=== PATIENT | male | born 1965 | race Caucasian/White ===

== ENCOUNTER 2017-02-07 14:57 | Emergency (ER) | payer SELFPAY ==
[~2017-02-07] VITALS: Ht 177.8 cm; Wt 85.0 kg
[~2017-02-07 14:57] MED LIST: Z.0.NO CURRENT MEDS
[2017-02-07 14:59] VITALS: BP 128/84; PULSE 88; RESP 13; TEMP 98.9; O2SAT 100
--- NOTE | 2017-02-07 15:18 | PD ---
Physical Exam Time Seen by Provider: 15:17 Narrative 52-year-old male with complaint of right inner thigh "boil" times two week. Denies fever, vomiting. Patient seen in triage. Vital signs reviewed. Patient awaiting bed placement. Data Data Last Documented VS Vital Signs Date Time Temp Pulse Resp B/P (MAP) Pulse Ox O2 Delivery O2 Flow Rate FiO2 02/07/17 14:59 98.9 88 13 128/84 (99) 100 MDM Supervised Visit with HODAN: Chelsi Sue Feb 07, 2017 15:18
--- NOTE | 2017-02-07 15:48 | PD ---
HPI Chief Complaint: Lump, Cyst, Hernia Time Seen by Provider: 15:35 Travel History International Travel<30 days: No Contact w/Intl Traveler<30days: No Traveled to known affect area: No History of Present Illness HPI Patient comes in complaining of a boil to his right inner thigh that began a week or 2 ago. Patient states had something similar happen approximately month ago that went away with using [id number] salve. Patient denies anything making it better this time. Patient states believes that sweating while working is making the boil worse. Patient complaining of pressure burning pain over the site of the boil. Denies any radiation of the pain. Denies any drainage or fevers. PFSH Past Medical History Medical History: Denies Significant Hx Diminished Hearing: No Social History Alcohol Use: Yes (5 TIMES WEEKLY) Tobacco Use: Yes (2 PPD FOR 20 YEARS) Substance Use: No Allergies-Medications (Allergen,Severity, Reaction): Coded Allergies: No Known Allergies (Verified Allergy, Mild, 03/09/07) Reported Meds & Prescriptions Reported Meds & Active Scripts Active Keflex (Cephalexin) 500 Mg Cap 500 Mg PO Q8H Bactrim DS (Sulfamethoxazole-Trimethoprim) 800-160 Mg Tab 1 Tab PO BID Reported No Current Meds (Miscellaneous Medication) Misc Review of Systems Except as stated in HPI: all other systems reviewed are Neg Physical Exam Narrative GENERAL: Well-developed, well nourished, in no acute distress, and non-ill appearing. SKIN: Small fluctuant abscess noted right inner thigh proximally approximately 2 cm in greatest diameter. It is tender to palpation. There is no crepitus or drainage. HEAD: Atraumatic. Normocephalic. EYES: Pupils equal and round. EOMI. No scleral icterus. No injection or drainage. ENT: No nasal bleeding or discharge. Mucous membranes pink and moist. NECK: Trachea midline. Supple. No nuclear rigidity. RESPIRATORY: No accessory muscle use. No respiratory distress. MUSCULOSKELETAL: No obvious deformities. No clubbing. No cyanosis. No edema. Full range of motion. NEUROLOGICAL: Awake and alert. No obvious cranial nerve deficits. Motor grossly within normal limits. Normal speech. PSYCHIATRIC: Appropriate mood and affect; insight and judgment normal. Data Data Last Documented VS Vital Signs Date Time Temp Pulse Resp B/P (MAP) Pulse Ox O2 Delivery O2 Flow Rate FiO2 9/22/17 15:53 02/07/17 14:59 98.9 88 13 100 Orders Orders Wound Culture And Gram Stain (02/07/17 15:35) MDM Medical Decision Making Medical Screen Exam Complete: Yes Emergency Medical Condition: Yes Differential Diagnosis Abscess, cellulitis, gangrene, folliculitis, other Narrative Course The patient has no evidence of significant cellulitis. There is no evidence of necrotizing fasciitis/ [place] at this time. The patient will be discharged on antibiotics. The patient was given signs and symptoms warnings for worsening infection, such as spreading of redness, increasing pain, and/or swelling, associated heat, or fever or feels worse, and instructed to return immediately if these signs or symptoms worsen. The patient is to return in 2 days for recheck. Sooner if worsens or as needed. The patient agrees with plan. Patient in no obvious distress upon re-evaluation. Patient was asked if they wanted to speak to my attending, which the patient did not wish to do at this time. Any questions/concerns in reference to patient diagnosis/condition discussed and clarified prior to patient's discharge. Reinforced sheer importance of close follow up with patient's primary physician or primary care clinic or to return here in 2 days for recheck. Instructed patient to return to ED immediately, if symptoms return/worsen. Patient showed understanding of above instructions. Further instructions and recommendations were detailed in discharge paperwork. Patient ambulated without difficulty out of ED at discharge. Procedures Procedure Narrative INCISION AND DRAINAGE OF ABSCESS: Verbal consent was obtained. The area was prepped. A number 16-gauge needle was used to make a small puncture wound over the area of the abscess. The abscess was drained. Sterile dressing applied by nurse. Patient tolerated procedure well. Patient advised to return here in 2 days to have wound rechecked. Patient verbalized understanding. Diagnosis Primary Impression: Abscess Patient Instructions: Abscess (GEN), Abscess Incision and Drainage (DC), General Instructions Additional Instructions: Follow-up here in 2 days for recheck. Take all medication as prescribed. Apply warm compresses to affected area multiple times throughout the day to promote drainage. Keep area dry and clean as possible using soap and water. Return to the emergency department if symptoms get worse. Med/Other Pt SpecificInfo: Prescription(s) given Scripts Cephalexin (Keflex) 500 Mg Cap 500 MG PO Q8H for Infection, #30 CAP 0 Refills Prov: Lucinda Burton MD 02/07/17 Sulfamethoxazole-Trimethoprim (Bactrim DS) 800-160 Mg Tab 1 TAB PO BID for Infection, #20 TAB 0 Refills Prov: Lucinda Burton MD 02/07/17 Disposition: 01 DISCHARGE HOME Condition: Stable Hang Meade Feb 07, 2017 15:48
[2017-02-07] MEDS ORDERED: BACT800T5 PO (15:49)
[2017-02-07] MEDS ORDERED: CEPH-460 PO (15:49)
== END 2017-02-07 16:11 | disposition home or self-care (01) ==
LOC: NEPK 14:57
DX: L02.415 Cutaneous abscess of right lower limb (principal); B95.7 Other staphylococcus as the cause of diseases classified elsewhere; F17.200 Nicotine dependence, unspecified, uncomplicated
CPT/HCPCS: 10060; 86403; 87070; 87205